=== PATIENT | male | born 1965 | race Caucasian/White ===

== ENCOUNTER 2018-01-26 14:34 | Emergency (ER) | payer OTHER ==
[~2018-01-26] VITALS: Ht 172.7 cm; Wt 88.5 kg
[~2018-01-26 14:34] MED LIST: AMLO5 PO; AMOCLA875 PO; AZIT250 PO; BENZ100A PO; Bactrim Ds Tab1 EACH PO; CARV6.25 PO; CYCL10 PO; DICL75ER PO; HYDACE5 PO; HYDR1TAB94 PO; IBUP800 PO; LISI20 PO; LORA1 PO; NAPR500 PO; Naprosyn500 MG PO; Norco 5-325 Ta1 EACH PO; OXYACE5T PO; RXHYDACE PO; RXOXYACE PO; RXTRAM50 PO; TRAM50 PO; UNK BP MED
[2018-01-26 15:11] LABS: BASOPHILS ABSOLUTE AUTO 0.05 K/mm3 (0.00-0.23); BASOPHILS PERCENT AUTO 1 % (0-2); EOSINOPHILS ABSOLUTE AUTO 0.07 K/mm3 (0.00-0.68); EOSINOPHILS PERCENT AUTO 2 % (0-6); Hematocrit 44.1 % (37.0-53.0); Hemoglobin 15.4 g/dL (13.5-17.5); IMMATURE GRAN ABSOLUTE AUTO 0.01 K/mm3 (0.00-0.10); IMMATURE GRAN PERCENT AUTO 0 % (0-1); LYMPHOCYTES ABSOLUTE AUTO 1.02 K/mm3 (0.84-5.20); LYMPHOCYTES PERCENT AUTO 22 % (21-46); MONOCYTES ABSOLUTE AUTO 0.62 K/mm3 (0.16-1.47); MONOCYTES PERCENT AUTO 13 % (4-13); Mean Corpuscular HGB 33.8 pg (26.0-34.0); Mean Corpuscular HGB Conc 34.9 g/dL (31.5-36.5); Mean Corpuscular Volume 97 fL (80-100); Mean Platelet Volume 9.7 fL (9.1-12.4); NEUTROPHILS ABSOLUTE AUTO 2.93 K/mm3 (1.96-9.15); NEUTROPHILS PERCENT AUTO 62 % (41-73); Platelet Count 187 K/mm3 (150-400); RDW Coefficient Variation 13.3 % (11.7-14.2); RDW Standard Deviation 47.8 fL (35.1-46.3); Red Blood Cell Count 4.56 M/mm3 (4.30-5.90)
[2018-01-26 15:28] LABS: Alanine Aminotransfer (ALT/SGP 73 U/L (12-78); Albumin, Blood 4.2 g/dL (3.4-5.0); Albumin/Globulin Ratio 1.1 (0.8-1.8); Alk Phos 60 U/L (50-136); Anion Gap 9 mmol/L (6-16); Aspartate Aminotrans (AST/SGOT 52 U/L (12-37); Bilirubin, Total 0.4 mg/dL (0.1-1.0); Blood Urea Nitrogen 5 mg/dL (8-24); Bun/Creatinine Ratio 8.5 (12.0-20.0); CO2, Blood 25 mmol/L (21-32); Calcium, Blood 8.8 mg/dL (8.5-10.1); Chloride, Blood 95 mmol/L (98-108); Creatinine, Blood 0.59 mg/dL (0.60-1.20); Globulin, Blood 3.8 g/dL (2.2-4.0); Glomerular Filtration Rate >60 (60-); Glucose, Blood 101 mg/dL (70-99); Potassium, Blood 4.1 mmol/L (3.5-5.5); Sodium, Blood 129 mmol/L (136-145)
[2018-01-26 15:45] LABS: Source, Urine Clean Catch
[2018-01-26 15:51] LABS: Bilirubin, Urine Neg (Neg); Blood, Urine Neg (Neg); Glucose Qualitative, Urine Neg (Neg); Ketones, Urine Neg (Neg); Leukocyte Esterase, Urine Neg (Neg); Nitrite, Urine Neg (Neg); Protein, Urine Neg (Neg); Specific Gravity, Urine 1.015 (1.003-1.022); Urobilinogen, Urine NORM (Normal)
[2018-01-26 16:22] LABS: Color, Urine Pale Yellow (P-Yellow)
[2018-01-26 16:23] LABS: Appearance, Urine Clear (Clear)
[2018-01-26] MEDS ORDERED: Norco 5-325 Ta1 EACH PO (18:21)
[2018-10-26] MEDS ORDERED: Voltaren100 GM TOP (17:56)
[2018-10-26] MEDS ORDERED: CYCL10 PO (17:56)
== END 2018-01-26 18:34 | disposition home or self-care (01) ==
LOC: ER 14:34
PROVIDERS: Emergency Medicine
DX: K42.9 Umbilical hernia without obstruction or gangrene (principal); K40.90 Unilateral inguinal hernia, without obstruction or gangrene, not specified as recurrent; I10 Essential (primary) hypertension; Z88.1 Allergy status to other antibiotic agents
CPT/HCPCS: 74177; 80053; 81003; 83690; 85025; 96360; 99284; J7030; Q9967

== ENCOUNTER 2018-03-09 11:12 | Emergency (ER) | payer OTHER ==
[~2018-03-09] VITALS: Ht 172.7 cm; Wt 88.5 kg
[2018-03-09 13:05] LABS: Calcium, Ionized (POC) 0.74 mmol/L (1.10-1.46); Chloride (POC) 98 mmol/L (98-108); Creatinine (POC) 1.1 mg/dL (0.8-1.3); Glucose (ISTAT POC) 110 mg/dL (70-99); Hemoglobin (POC) 16.3 g/dL (13.5-17.5); Potassium (POC) 4.1 mmol/L (3.5-5.5); Sodium (POC) 138 mmol/L (135-148); Total CO2 (POC) 25 mmol/L (21-32)
[2018-03-09] MEDS ORDERED: Percocet 5-3251 EACH PO (13:19)
== END 2018-03-09 13:27 | disposition home or self-care (01) ==
LOC: ER 11:12
PROVIDERS: Emergency Medicine
DX: K42.9 Umbilical hernia without obstruction or gangrene (principal); K40.90 Unilateral inguinal hernia, without obstruction or gangrene, not specified as recurrent; I10 Essential (primary) hypertension; Z88.1 Allergy status to other antibiotic agents
CPT/HCPCS: 36415; 80047; 81000; 85014; 99283

== ENCOUNTER 2018-04-25 16:24 | Emergency (ER) | payer OTHER ==
[~2018-04-25] VITALS: Ht 172.7 cm; Wt 77.1 kg
[~2018-04-25 16:24] MED LIST changes: +Percocet 5-3251 EACH PO
[2018-04-25 18:21] LABS: BASOPHILS ABSOLUTE AUTO 0.05 K/mm3 (0.00-0.23); BASOPHILS PERCENT AUTO 2 % (0-2); EOSINOPHILS ABSOLUTE AUTO 0.07 K/mm3 (0.00-0.68); EOSINOPHILS PERCENT AUTO 2 % (0-6); Hematocrit 42.5 % (37.0-53.0); Hemoglobin 14.9 g/dL (13.5-17.5); IMMATURE GRAN ABSOLUTE AUTO 0.01 K/mm3 (0.00-0.10); IMMATURE GRAN PERCENT AUTO 0 % (0-1); LYMPHOCYTES PERCENT AUTO 25 % (21-46); MONOCYTES ABSOLUTE AUTO 0.33 K/mm3 (0.16-1.47); MONOCYTES PERCENT AUTO 10 % (4-13); Mean Corpuscular HGB 34.7 pg (26.0-34.0); Mean Corpuscular HGB Conc 35.1 g/dL (31.5-36.5); Mean Corpuscular Volume 99 fL (80-100); Mean Platelet Volume 10.3 fL (9.1-12.4); NEUTROPHILS ABSOLUTE AUTO 1.98 K/mm3 (1.96-9.15); NEUTROPHILS PERCENT AUTO 61 % (41-73); Platelet Count 153 K/mm3 (150-400); RDW Coefficient Variation 13.2 % (11.7-14.2); RDW Standard Deviation 48.2 fL (35.1-46.3); White Blood Cell Count 3.24 K/mm3 (4.00-11.30)
[2018-04-25 18:34] LABS: International Normalized Ratio 1.03; Prothrombin Time Results 10.7 Sec (9.7-11.5)
[2018-04-25] MEDS ORDERED: IBUP800 PO (18:42)
[2018-04-25] MEDS ORDERED: Acetaminophen-1 EAC1 PO (18:42)
[2018-04-25] MEDS ORDERED: Robaxin-750750 MG PO (18:42)
[2018-04-25 18:47] LABS: Alanine Aminotransfer (ALT/SGP 111 U/L (12-78); Albumin/Globulin Ratio 1.2 (0.8-1.8); Alk Phos 92 U/L (50-136); Anion Gap 10 mmol/L (6-16); Aspartate Aminotrans (AST/SGOT 114 U/L (12-37); Bilirubin, Total 0.5 mg/dL (0.1-1.0); Blood Urea Nitrogen 4 mg/dL (8-24); Bun/Creatinine Ratio 7.2 (12.0-20.0); CO2, Blood 27 mmol/L (21-32); Calcium, Blood 8.7 mg/dL (8.5-10.1); Chloride, Blood 101 mmol/L (98-108); Creatinine, Blood 0.55 mg/dL (0.60-1.20); Globulin, Blood 3.4 g/dL (2.2-4.0); Glomerular Filtration Rate >60 (60-); Glucose, Blood 101 mg/dL (70-99); Sodium, Blood 138 mmol/L (136-145); Total Protein, Blood 7.4 g/dL (6.4-8.2)
[2018-04-25 19:02] LABS: Ethanol (Alcohol), Blood, Med 301 mg/dL
== END 2018-04-25 18:51 | disposition home or self-care (01) ==
LOC: ER 16:24
PROVIDERS: Emergency Medicine
DX: M79.1 Myalgia (principal); M54.2 Cervicalgia; M54.5 Low back pain; M54.6 Pain in thoracic spine; I10 Essential (primary) hypertension; Z88.1 Allergy status to other antibiotic agents; V60.5XXA Driver of heavy transport vehicle injured in collision with pedestrian or animal in traffic accident, initial encounter
CPT/HCPCS: 36415; 70450; 71260; 72125; 74177; 80053; 83690; 85025; 85610; 85730; 86850; 86900; 86901; 96374; 99284; G0480; J3010; L0160; Q9967

== ENCOUNTER 2018-05-13 14:05 | Emergency (ER) | payer OTHER ==
[~2018-05-13] VITALS: Ht 172.7 cm; Wt 841.4 kg
[~2018-05-13 14:05] MED LIST changes: +Acetaminophen-1 EAC1 PO; +Robaxin-750750 MG PO
[2018-05-13] MEDS ORDERED: BLOOD PRESSURE (14:45)
== END 2018-05-13 15:16 | disposition home or self-care (01) ==
LOC: ER 14:05
DX: K46.9 Unspecified abdominal hernia without obstruction or gangrene (principal); Z88.1 Allergy status to other antibiotic agents; Z79.899 Other long term (current) drug therapy; I10 Essential (primary) hypertension
CPT/HCPCS: 99282

== ENCOUNTER 2019-05-28 13:25 | Emergency (ER) | payer OTHER ==
[~2019-05-28] VITALS: Ht 172.7 cm; Wt 83.9 kg
[~2019-05-28 13:25] MED LIST changes: +BLOOD PRESSURE; +Voltaren100 GM TOP
[2019-05-28 14:10] LABS: BASOPHILS ABSOLUTE AUTO 0.06 K/mm3 (0.00-0.23); BASOPHILS PERCENT AUTO 1 % (0-2); EOSINOPHILS ABSOLUTE AUTO 0.09 K/mm3 (0.00-0.68); EOSINOPHILS PERCENT AUTO 2 % (0-6); Hematocrit 44.7 % (37.0-53.0); Hemoglobin 15.2 g/dL (13.5-17.5); IMMATURE GRAN ABSOLUTE AUTO 0.02 K/mm3 (0.00-0.10); IMMATURE GRAN PERCENT AUTO 0 % (0-1); LYMPHOCYTES ABSOLUTE AUTO 1.21 K/mm3 (0.84-5.20); LYMPHOCYTES PERCENT AUTO 21 % (21-46); MONOCYTES ABSOLUTE AUTO 0.45 K/mm3 (0.16-1.47); MONOCYTES PERCENT AUTO 8 % (4-13); Mean Corpuscular HGB 34.9 pg (26.0-34.0); Mean Corpuscular Volume 103 fL (80-100); Mean Platelet Volume 9.3 fL (9.1-12.4); NEUTROPHILS ABSOLUTE AUTO 4.01 K/mm3 (1.96-9.15); NEUTROPHILS PERCENT AUTO 69 % (41-73); Platelet Count 251 K/mm3 (150-400); RDW Coefficient Variation 13.5 % (11.7-14.2); Red Blood Cell Count 4.36 M/mm3 (4.30-5.90); White Blood Cell Count 5.84 K/mm3 (4.00-11.30)
[2019-05-28 14:39] LABS: Alanine Aminotransfer (ALT/SGP 27 U/L (12-78); Albumin, Blood 4.2 g/dL (3.4-5.0); Albumin/Globulin Ratio 1.2 (0.8-1.8); Alk Phos 61 U/L (50-136); Anion Gap 8 mmol/L (6-16); Aspartate Aminotrans (AST/SGOT 29 U/L (12-37); Bilirubin, Total 0.2 mg/dL (0.1-1.0); Blood Urea Nitrogen 10 mg/dL (8-24); Bun/Creatinine Ratio 13.2 (12.0-20.0); CO2, Blood 27 mmol/L (21-32); Calcium, Blood 8.5 mg/dL (8.5-10.1); Chloride, Blood 101 mmol/L (98-108); Creatinine, Blood 0.76 mg/dL (0.60-1.20); Globulin, Blood 3.5 g/dL (2.2-4.0); Glomerular Filtration Rate >60 (60-); Glucose, Blood 141 mg/dL (70-99); Potassium, Blood 4.4 mmol/L (3.5-5.5); Sodium, Blood 136 mmol/L (136-145); Total Protein, Blood 7.7 g/dL (6.4-8.2)
== END 2019-05-28 15:40 | disposition home or self-care (01) ==
LOC: ER 13:25
PROVIDERS: Physician Assistant
DX: M54.2 Cervicalgia (principal); G89.29 Other chronic pain; R51 Headache; I10 Essential (primary) hypertension; Z88.1 Allergy status to other antibiotic agents
CPT/HCPCS: 36415; 70450; 80053; 85025; 93005; 93010; 99284-25

== ENCOUNTER 2019-12-18 01:32 | Inpatient (IN) | payer OTHER ==
[~2019-12-18] VITALS: Ht 172.7 cm; Wt 68.0 kg
[2019-12-18 02:18] LABS: Source, Urine Clean Catch
[2019-12-18 02:24] LABS: BASOPHILS ABSOLUTE AUTO 0.02 K/mm3 (0.00-0.23); BASOPHILS PERCENT AUTO 0 % (0-2); EOSINOPHILS PERCENT AUTO 0 % (0-6); Hematocrit 42.1 % (37.0-53.0); Hemoglobin 15.2 g/dL (13.5-17.5); IMMATURE GRAN ABSOLUTE AUTO 0.04 K/mm3 (0.00-0.10); IMMATURE GRAN PERCENT AUTO 0 % (0-1); LYMPHOCYTES ABSOLUTE AUTO 0.37 K/mm3 (0.84-5.20); LYMPHOCYTES PERCENT AUTO 3 % (21-46); MONOCYTES ABSOLUTE AUTO 1.07 K/mm3 (0.16-1.47); MONOCYTES PERCENT AUTO 9 % (4-13); Mean Corpuscular HGB 34.9 pg (26.0-34.0); Mean Corpuscular HGB Conc 36.1 g/dL (31.5-36.5); Mean Corpuscular Volume 97 fL (80-100); Mean Platelet Volume 11.1 fL (9.1-12.4); NEUTROPHILS ABSOLUTE AUTO 10.77 K/mm3 (1.96-9.15); NEUTROPHILS PERCENT AUTO 88 % (41-73); Platelet Count 126 K/mm3 (150-400); RDW Standard Deviation 43.2 fL (35.1-46.3); Red Blood Cell Count 4.36 M/mm3 (4.30-5.90); White Blood Cell Count 12.27 K/mm3 (4.00-11.30)
[2019-12-18 02:24] LABS: Bilirubin, Urine Neg (Neg); Blood, Urine 5+ (Neg); Glucose Qualitative, Urine Neg (Neg); Ketones, Urine 1+ (Neg); Leukocyte Esterase, Urine 1+ (Neg); Nitrite, Urine Neg (Neg); Protein, Urine 3+ (Neg); Specific Gravity, Urine 1.025 (1.003-1.022); Urobilinogen, Urine NORM (Normal)
[2019-12-18 02:29] LABS: Appearance, Urine Hazy (Clear); Color, Urine Yellow (P-Yellow)
[2019-12-18 02:30] LABS: Amorphous Light (0-Heavy); Bacteria Many /hpf; Hyaline Casts TNTC /lpf (0-2); Red Blood Cells, Urine 0-2 /hpf (0-2); Squamous Epithelial Cells Rare /hpf (Few)
[2019-12-18 02:34] LABS: U Amphetamine Screen Not Detected; U Barbituate Screen Not Detected; U Benzodiazapine Screen DETECTED; U Buprenorphine Screen Not Detected; U Cannabinoids Screen DETECTED; U Cocaine Screen Not Detected; U Methadone Screen Not Detected; U Methamphetamine Screen Not Detected; U Opiates Screen Not Detected; U Phencyclidine Screen Not Detected
[2019-12-18 02:35] LABS: U Oxycodone Screen Not Detected; U Propoxyphene Screen Not Detected
[2019-12-18 02:45] LABS: Acetaminophen, Random 2.6 ug/mL (10.0-30.0); Alanine Aminotransfer (ALT/SGP 195 U/L (12-78); Albumin, Blood 4.7 g/dL (3.4-5.0); Albumin/Globulin Ratio 1.3 (0.8-1.8); Alk Phos 57 U/L (50-136); Anion Gap 27 mmol/L (6-16); Aspartate Aminotrans (AST/SGOT 528 U/L (12-37); Bilirubin, Total 1.6 mg/dL (0.1-1.0); Blood Urea Nitrogen 71 mg/dL (8-24); Bun/Creatinine Ratio 27.3 (12.0-20.0); CO2, Blood 15 mmol/L (21-32); Chloride, Blood 79 mmol/L (98-108); Creatine Kinase MB 98.6 ng/mL (0.0-3.6); Ethanol (Alcohol), Blood, Med 15 mg/dL; Globulin, Blood 3.7 g/dL (2.2-4.0); Glomerular Filtration Rate 28 (60-); Glucose, Blood 99 mg/dL (70-99); Magnesium, Blood 2.4 mg/dL (1.6-2.4); Potassium, Blood 3.4 mmol/L (3.5-5.5); Salicylate <1.7 mg/dL (2.8-20.0); Sodium, Blood 121 mmol/L (136-145); Total Protein, Blood 8.4 g/dL (6.4-8.2)
[2019-12-18 03:11] LABS: CPK Creatine Kinase 11497 U/L (39-308); Creatine Kinase MB Index 0.9 (0.0-4.0)
[2019-12-18 03:31] LABS: International Normalized Ratio 1.05; Prothrombin Time Results 11.2 Sec (9.7-11.5)
[2019-12-18 03:53] LABS: Troponin I 0.158 ng/mL (0.000-0.040)
--- NOTE | 2019-12-18 06:30 | NUR ---
PCU ADMIT / TRANSFER TO ICU PT BROUGHT TO PCU RM 05 FROM ER BY PHIL @ 0500. PT ABLE TO STAND & VERY UNSTEADILY AMBULATE FROM [facility] TO PCU BED W/ 2 PERSON MOD ASSIST. PT A&O, ANSWERING Q's APPROPRIATELY, BUT HAVING VISUAL HALLUCINATIONS. PT VERY RESTLESS & FIDGETY, UNABLE TO HOLD STILL W/ NOTABLE TREMORS TO BILAT ARMS AND LEGS. PT INITIAL CIWA 35, REDUCED TO 25 POST 2MG IV ATIVAN PER EMAR. CALL TO MD DESHPANDE W/ ORDERS FOR JENNIFER VEST & BILAT SWR, & TRANSFER TO ICU & PRECEDEX GTT. PT TRANSFERED TO ICU RM 09 @ APPROX 0600 W/ BEDSIDE REPORT GIVEN.
--- NOTE | 2019-12-18 06:30 | NUR ---
TRANSFER/ASSUMPTION OF CARE: PATIENT TRANSFERRED FROM PCU TO ICU RM 9, ARRIVED AT 0605HR. PATIENT ALERT BUT VERY CONFUSED AND RESTLESS. ORIENTED TO SELF, BUT CONFUSED TO DATE/TIME, PLACE, AND REASON FOR ADMISSION. PATIENT VERY TREMULOUS AND RESTLESS IN BED. CONTINUALLY PULLING AND BLANKETS, TUBES, CORDS. ONLY ABLE TO VERBALLY RE-DIRECT PATIENT FOR APPROX 10-15 SECONDS BEFORE BEHAVIOR CONTINUED. PATIENT SPEECH IS CLEAR BUT NONSENSICAL. JENNIFER VEST IN PLACE UPON ARRIVAL, BILATERAL SOFT WRIST RESTRAINTS ALSO APPLIED. PRECEDEX GTT STARTED AT 0.7MCG/KG/HR. CALL PLACED TO DR. DESHPANDE, RECEIVED ORDERS FOR NS AT 100ML/HR X2L, PO TYLENOL PRN FEVER. PERIPHERAL IV'S X3 PATENT AND INTACT, INFUSING WITHOUT DIFFICULTY. VOIDED USING URINAL IN BED WITHOUT DIFFICULTY. BEDSIDE REPORT GIVEN TO DAY SHIFT RN.
[2019-12-18] MEDS ORDERED: BUPR100 PO (11:52)
[2019-12-18] MEDS ORDERED: CLON1 PO (11:52)
[2019-12-18] MEDS ORDERED: LISI20 PO (11:53)
--- NOTE | 2019-12-18 11:53 | NUR ---
REASSESSMENT: PT WAS QUITE RESTLESS THIS MORNING, UNABLE TO HOLD STILL, BUT HE QUICKLY CALMED DOWN AND FEEL ASLEEP THE PRECEDEX CONTINUED TO INFUSE. PRECEDEX HAS BEEN TITRATED DOWN ABLE, SEE FLOWSHEET. PT IS SLEEPING IN BED CURRENTLY. IF WOKEN UP HE BECOMES RESTLESS AGAIN, UNABLE TO HOLD STILL. HE ATTEMPTS TO FOLLOW DIRECTIONS BUT IS UNABLE TO HOLD HIS ATTENTION. HE IS ORIENTED TO PERSON AND KNOWS HE IS IN A HOSPITAL. LUNGS ARE CLEAR, ON RA. SR, BP STABLE, SEE VITALS. AFEBRILE NOW. SKIN CONTINUES TO BE HOT AND DIAPHORETIC. PT HAD A BM AND VOIDED THIS MORNING, ATTENDS ON. WHEN RESTRAINTS ARE RELEASED FOR REPOSITIONING PT GRABS AT ANYTHING HE CAN GET A HOLD OF INCLUDING IV LINES AND MONITOR LINES.
[2019-12-18 15:19] LABS: Alanine Aminotransfer (ALT/SGP 135 U/L (12-78); Albumin, Blood 3.4 g/dL (3.4-5.0); Albumin/Globulin Ratio 1.2 (0.8-1.8); Alk Phos 37 U/L (50-136); Anion Gap 12 mmol/L (6-16); Aspartate Aminotrans (AST/SGOT 310 U/L (12-37); Bilirubin, Total 1.2 mg/dL (0.1-1.0); Blood Urea Nitrogen 37 mg/dL (8-24); Bun/Creatinine Ratio 42.8 (12.0-20.0); CO2, Blood 23 mmol/L (21-32); CPK Creatine Kinase 6929 U/L (39-308); Calcium, Blood 8.2 mg/dL (8.5-10.1); Chloride, Blood 97 mmol/L (98-108); Creatinine, Blood 0.87 mg/dL (0.60-1.20); Globulin, Blood 2.8 g/dL (2.2-4.0); Glomerular Filtration Rate >60 (60-); Glucose, Blood 109 mg/dL (70-99); Potassium, Blood 3.4 mmol/L (3.5-5.5); Sodium, Blood 132 mmol/L (136-145); Total Protein, Blood 6.2 g/dL (6.4-8.2)
--- NOTE | 2019-12-18 17:04 | NUR ---
SHIFT SUMMARY: PT CONTINUED TO REST THROUGHOUT THE DAY. THIS AFTERNOON PT WOKE UP AND WAS MUCH MORE ORIENTED. HE IS STILL ONLY ORIENTED TO PERSON AND SURROUNDINGS, BUT HE IS ABLE TO FOLLOW DIRECTIONS AND HOLD A CONVERSATION THAT MAKES SENSE. HE HELPED TURN HIMSELF AND WAS MORE IN CONTROL OF HIS BODY MOVEMENTS. WRIST RESTRAINTS REMOVED AFTER DISCUSSING WITH PT WHAT WILL CAUSE HIM TO GET THEM PUT BACK ON AND PT VERBALIZED UNDERSTANDING. PT HAS BEEN LEAVING HIS IV AND MONITOR LINES ALONE. VEST REMAINS ON AND BED ALARM IS ON. PT REMAINS SR, BP STABLE, RA, CL LUNGS. PT WAS CONTINENT OF URINE AND STOOL THIS AFTERNOON. PRECEDEX REMAINS ON. CONTINUING TO MONITOR.
--- NOTE | 2019-12-18 18:38 | NUR ---
[facility] MONIT[facility] IS SHOWING SOME ST ELEVATION IN LEADS II AND III. PT'S TROPONINS WAS SLIGHTLY ELEVATED [place] HE CAME IN. HE DENIES ANY CHEST PAIN. DR. KNIGHT NOTIFIED AND GAVE OK TO DO EKG AND ALSO GAVE ORDER FOR REPEAT TROPONIN. EKG DIFFICULT D'T PT'S TREMORS, BUT READ NORMAL SR. TROPONIN DECREASED FROM EARLIER LEVEL. CONTINUE TO MONITOR.
--- NOTE | 2019-12-18 19:41 | NUR ---
[place] of Care: Care assumed at 1900hr. Patient sleeping, but easily roused to verbal stimuli. Slightly drowsy when awake, but now able to have sensible conversation, compared to nonsensical speech las NOC shift. Oriented to self, time, place, but confused to reason for admission. No restraints in place, bed-alarm on r/t fall risk, calm and cooperative with staff. VSS, O2-97% on RA. Denies pain, discomfort, SOB, or dyspnea. Precedex gtt at 0.4mcg/kg/hr at shift change, decreased to 0.2mcg/kg/hr as patient's HR briefly decreased from 60's to low 50's, while sleeping, will continue to monitor. CIWA of 8 at this time. Peripheral IV's patent and intact. Plan to contact Dr. Pena r/t K+ of 3.4 on this afternoon's lab results. Very occasional PVC's noted. Will continue to monitor for pain, comfort, safety.
[2019-12-19 03:38] LABS: Hematocrit 32.6 % (37.0-53.0); Hemoglobin 11.7 g/dL (13.5-17.5); Mean Corpuscular HGB 35.6 pg (26.0-34.0); Mean Corpuscular HGB Conc 35.9 g/dL (31.5-36.5); Mean Corpuscular Volume 99 fL (80-100); Mean Platelet Volume 10.6 fL (9.1-12.4); Platelet Count 89 K/mm3 (150-400); RDW Coefficient Variation 12.4 % (11.7-14.2); RDW Standard Deviation 45.6 fL (35.1-46.3); Red Blood Cell Count 3.29 M/mm3 (4.30-5.90); White Blood Cell Count 7.19 K/mm3 (4.00-11.30)
[2019-12-19 03:56] LABS: Alanine Aminotransfer (ALT/SGP 120 U/L (12-78); Albumin, Blood 3.1 g/dL (3.4-5.0); Albumin/Globulin Ratio 1.2 (0.8-1.8); Alk Phos 40 U/L (50-136); Anion Gap 10 mmol/L (6-16); Aspartate Aminotrans (AST/SGOT 216 U/L (12-37); Bilirubin, Total 0.7 mg/dL (0.1-1.0); Blood Urea Nitrogen 23 mg/dL (8-24); Bun/Creatinine Ratio 35.9 (12.0-20.0); CO2, Blood 26 mmol/L (21-32); Calcium, Blood 7.7 mg/dL (8.5-10.1); Chloride, Blood 100 mmol/L (98-108); Creatinine, Blood 0.64 mg/dL (0.60-1.20); Globulin, Blood 2.6 g/dL (2.2-4.0); Glomerular Filtration Rate >60 (60-); Glucose, Blood 83 mg/dL (70-99); Potassium, Blood 3.2 mmol/L (3.5-5.5); Sodium, Blood 136 mmol/L (136-145); Total Protein, Blood 5.7 g/dL (6.4-8.2)
--- NOTE | 2019-12-19 05:47 | NUR ---
Shift Summary: Patient awake for most of shift, but has been sleeping off/on for last several hours. Patient continues to be alert when awake, and oriented to time, place, date, self, but does not believe he has been admitted r/t ETOH withdrawal. Continues to be calm and cooperative with staff, following commands. No attempts to get out of bed, or pull at lines, tubes, cords. Precedex gtt at 0.2mcg/kg/hr throughout shift, with x2 doses of prn Librium given per increase in tremors of c/o anxiety. Good effect noted with administration of Librium. Received order per Dr. Pena early in shift for 40meq PO KCl r/t K= of 3.4 on day shift. Morning labs then showed K+ of 3.2, received order per Dr. Lyman for 40meq IV KCl, first 20meq bag infusing at this time. Peripheral IV's remain patent and intact. Voiding using urinal in bed without difficulty. Tolerated PO fluids and snacks this shift without difficulty. Call light in reach, makes needs known. Will continue to monitor until report to day shift RN.
--- NOTE | 2019-12-19 08:00 | NUR ---
PT AWAKE IN BED WATCHING TV. ORIENTED X3. WHEN ASKED QUESTIONS PT'S SPEECH TENDS TO GO OFF ON A TANGENT; DIFFICULT TO ELICIT DIRECT ANSWERS FROM PT. PT HAS MODERATE TREMOR, SLIGHT ANXIETY W RESTLESSNESS. CIWA 6; LIBRIUM GIVEN. PRECEDEX HAS BEEN OFF SINCE 629. VSS
--- NOTE | 2019-12-19 12:44 | NUR ---
DR LOONEY IN TO SEE PT; PT CHANGED TO PCU STATUS. CIWA RANGE FROM 6-10. PT HAD REQUESTED SOMETHING FOR W/D SYMPTOMS AT 1115; LIBRIUM AND ATIVAN GIVEN FOR CIWA 10 W GOOD EFFECT
--- NOTE | 2019-12-19 17:05 | NUR ---
ECHOCARDIOGRAM COMPLETED
--- NOTE | 2019-12-19 20:27 | NUR ---
PT CIWA RANGED FROM 6-10 T/O SHIFT; LIBRIUM AND ATIVAN GIVEN W GOOD EFFECT. PT SBA TO TOILET; UNSTEADY GAIT AND IMPULSIVE, BED ALARM SET. PT SLEPT ON AND OFF T/O DAY AND WATCHED TV. PT CALM AND COOPERATIVE, OCCASIONALLY RESTLESS IN BED. BP AND HEART RATE STABLE; T-MAX 100.O; PT FOUND BUNDLED UP MANY TIMES IN BED. PT VERBALIZES THAT HE WOULD LIKE TO BE DC'D HOME IN AM; HE IS CONCERNED ABOUT MISSING SCHOOL. PT REMINDED THAT THERE IS NO SCHOOL TOMORROW IT IS A HOLIDAY. PT VERBALIZES BEING VERY ANXIOUS ABOUT SCHOOL SITUATION; PT COUNSELED. REPORT GIVEN TO LUIS MEDEL.
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
[2019-12-20 03:52] LABS: BASOPHILS ABSOLUTE AUTO 0.01 K/mm3 (0.00-0.23); BASOPHILS PERCENT AUTO 0 % (0-2); EOSINOPHILS ABSOLUTE AUTO 0.08 K/mm3 (0.00-0.68); EOSINOPHILS PERCENT AUTO 1 % (0-6); Hematocrit 34.2 % (37.0-53.0); IMMATURE GRAN ABSOLUTE AUTO 0.03 K/mm3 (0.00-0.10); IMMATURE GRAN PERCENT AUTO 1 % (0-1); LYMPHOCYTES PERCENT AUTO 17 % (21-46); MONOCYTES ABSOLUTE AUTO 0.55 K/mm3 (0.16-1.47); MONOCYTES PERCENT AUTO 9 % (4-13); Mean Corpuscular HGB 35.2 pg (26.0-34.0); Mean Corpuscular HGB Conc 35.1 g/dL (31.5-36.5); Mean Corpuscular Volume 100 fL (80-100); Mean Platelet Volume 10.9 fL (9.1-12.4); NEUTROPHILS ABSOLUTE AUTO 4.22 K/mm3 (1.96-9.15); NEUTROPHILS PERCENT AUTO 72 % (41-73); Platelet Count 103 K/mm3 (150-400); RDW Coefficient Variation 12.5 % (11.7-14.2); RDW Standard Deviation 46.7 fL (35.1-46.3); Red Blood Cell Count 3.41 M/mm3 (4.30-5.90); White Blood Cell Count 5.89 K/mm3 (4.00-11.30)
[2019-12-20 04:14] LABS: Alanine Aminotransfer (ALT/SGP 117 U/L (12-78); Alk Phos 47 U/L (50-136); Anion Gap 9 mmol/L (6-16); Aspartate Aminotrans (AST/SGOT 182 U/L (12-37); Bilirubin, Total 0.9 mg/dL (0.1-1.0); Blood Urea Nitrogen 9 mg/dL (8-24); Bun/Creatinine Ratio 18.5 (12.0-20.0); CO2, Blood 27 mmol/L (21-32); Calcium, Blood 7.7 mg/dL (8.5-10.1); Chloride, Blood 99 mmol/L (98-108); Creatinine, Blood 0.49 mg/dL (0.60-1.20); Globulin, Blood 2.9 g/dL (2.2-4.0); Glomerular Filtration Rate >60 (60-); Glucose, Blood 90 mg/dL (70-99); Sodium, Blood 135 mmol/L (136-145); Total Protein, Blood 5.9 g/dL (6.4-8.2)
[2019-12-20 04:36] LABS: CPK Creatine Kinase 2876 U/L (39-308)
--- NOTE | 2019-12-20 05:42 | NUR ---
SHIFT SUMMARY PT REMAINS STABLE T/O SHIFT, SOME CONFUSION AT BEGINNING OF SHIFT NOW RESOLVED. ETOH WITHDRAWALS SEEMED TO HAVE STABILIZED, REQUIRING LESS PRN MEDICATIONS. PT RESTED THROUGH MUCH OF SHIFT, WOKE UP FOR MORNING LABS, PT BECAME ANXIOUS, STIMULI REDUCED, NO IMPROVEMENT WITH REST, CIWA FROM 3 TO 7, PRN LIBRIUM PROVIDED. TMAX THIS SHIFT 100.9, TYLENOL PROVIDED WITH GOOD EFFECT. MONITOR SHOWS SINUS RHYTHM WITH STABLE BP. PT TOLERATING PO INTAKE, USING URINAL AT BEDSIDE, USES CALL LIGHT APPROPRIATELY, PLEASANT AND COOPERATIVE T/O SHIFT.
--- NOTE | 2019-12-20 07:30 | NUR ---
BEGINNING OF SHIFT Assumed care at 0700. Bedside report received from Syeda MEDEL. Pt A&O x 4. Anxious. Restless. Tremulous. States he is "tired of being in this bed". Initially refuses IV potassium, but is agreeable to recieve it if he can take a shower and sit in a chair. Pt assisted to shower. Steady on feet. Pt showering independently at this time.
--- NOTE | 2019-12-20 09:00 | NUR ---
DR GOMEZ IN TO SEE PT Pt states intent to go home today. This RN discussed AM CIWA and medications provided and stated that pt may not be safe to go home today. Provider states she will reassess pt after lunch.
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
[2019-12-20 12:12] LABS: Magnesium, Blood 1.8 mg/dL (1.6-2.4); Potassium, Blood 3.2 mmol/L (3.5-5.5)
--- NOTE | 2019-12-20 12:45 | NUR ---
CALL PLACED TO DR GOMEZ Discussed potassium redraw. Discussed concerns from pt's mother, who pt shares living space with. Plan to keep pt. Pt to continue as ICU status. Telephone orders given for psych consultation. Discussed 2 MD hold, provider stated this would be inappropriate as pt does not act to be a threat to self or others.
--- NOTE | 2019-12-20 16:12 | NUR ---
[facility] CONSULT Provider states he will consult on patient tomorrow 12/20/19.
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
--- NOTE | 2019-12-20 17:30 | NUR ---
DR GOMEZ IN TO SEE PT Pt sitting on edge of bed eating dinner. Verbalizes understanding that he will be here over night.
--- NOTE | 2019-12-20 17:47 | NUR ---
SUMMARY Pt initially PCU status. Changed to ICU status as pt had elevated CIWAs that were not responding to administration of ativan. Precedex in room, on standby. Pt has not yet required precedex today. At this time, pt is sitting on edge of bed, eating dinner. Pt states he would like to go for a walk. Pt remains on room air. Sinus rhythm per monitor. Bed in lowest position. Call light in reach. Pt denies need at this time.
--- NOTE | 2019-12-20 19:15 | NUR ---
PT ALERT, STANDING IN ROOM, HELP PT BACK TO BED, VITALS WNL ON ROOM AIR. DENIES PAIN. WILL REVEIW CARE PLAN
[2019-12-21 03:43] LABS: BASOPHILS ABSOLUTE AUTO 0.02 K/mm3 (0.00-0.23); BASOPHILS PERCENT AUTO 0 % (0-2); EOSINOPHILS ABSOLUTE AUTO 0.14 K/mm3 (0.00-0.68); EOSINOPHILS PERCENT AUTO 2 % (0-6); IMMATURE GRAN ABSOLUTE AUTO 0.04 K/mm3 (0.00-0.10); IMMATURE GRAN PERCENT AUTO 1 % (0-1); LYMPHOCYTES ABSOLUTE AUTO 1.14 K/mm3 (0.84-5.20); LYMPHOCYTES PERCENT AUTO 19 % (21-46); MONOCYTES ABSOLUTE AUTO 0.65 K/mm3 (0.16-1.47); MONOCYTES PERCENT AUTO 11 % (4-13); Mean Corpuscular HGB 35.6 pg (26.0-34.0); Mean Corpuscular HGB Conc 35.1 g/dL (31.5-36.5); Mean Corpuscular Volume 101 fL (80-100); Mean Platelet Volume 10.7 fL (9.1-12.4); NEUTROPHILS ABSOLUTE AUTO 3.93 K/mm3 (1.96-9.15); NEUTROPHILS PERCENT AUTO 66 % (41-73); Platelet Count 151 K/mm3 (150-400); RDW Coefficient Variation 12.6 % (11.7-14.2); RDW Standard Deviation 46.9 fL (35.1-46.3); Red Blood Cell Count 3.65 M/mm3 (4.30-5.90); White Blood Cell Count 5.92 K/mm3 (4.00-11.30)
[2019-12-21 04:05] LABS: Alanine Aminotransfer (ALT/SGP 115 U/L (12-78); Albumin, Blood 3.3 g/dL (3.4-5.0); Albumin/Globulin Ratio 1.1 (0.8-1.8); Alk Phos 47 U/L (50-136); Anion Gap 4 mmol/L (6-16); Aspartate Aminotrans (AST/SGOT 144 U/L (12-37); Bilirubin, Total 0.8 mg/dL (0.1-1.0); Blood Urea Nitrogen 10 mg/dL (8-24); Bun/Creatinine Ratio 17.3 (12.0-20.0); CO2, Blood 32 mmol/L (21-32); Calcium, Blood 8.6 mg/dL (8.5-10.1); Chloride, Blood 103 mmol/L (98-108); Creatinine, Blood 0.58 mg/dL (0.60-1.20); Glomerular Filtration Rate >60 (60-); Glucose, Blood 116 mg/dL (70-99); Potassium, Blood 3.4 mmol/L (3.5-5.5); Sodium, Blood 139 mmol/L (136-145); Total Protein, Blood 6.3 g/dL (6.4-8.2)
--- NOTE | 2019-12-21 08:00 | NUR ---
INITIAL ASSESMENT PT ALERT AND ORIENT TIMES THREE AND COOPERATIVE AT THIS TIME WITH CIWA ASSESMENTS PER MD ORDERS AND LITHIUM AND ATIVAN GIVEN PER ORDER. DENIES PAIN, VSS RA WITH SATS WNL, TOLERATING PO INTAKE WITH GOOD APPETITE AND LARGE BROWN FORMED BM. USING URINAL WITH ADEQUATE DARK YELLOW CLEAR UO. WILL CONT TO MONITOR CIWA AND D/C TO MED FLOOR PER MD ORDER
--- NOTE | 2019-12-21 08:02 | NUR ---
PT ALERT, ABLE TO REST COMFORTABLE AFTER, GETTING A TOTAL OF 12MG OF ATIVAN AND 175MG OF LIBRIUM BEFORE MIDNIGHT. PT SLIGHTLY IMPLUSIVE, GETS OUT OF BED WITHOUT NOTIFING NURSE. VITALS WNL, NO ACUTE EVENTS, WILL CONTINUE TO MONITOR.
== END 2019-12-21 14:49 | disposition home or self-care (01) | DRG 896 ==
LOC: ER 01:32 → PCU 04:32 → ICUW 04:32 → PCU 04:54 → ICUW 06:05
PROVIDERS: Emergency Medicine; Internal Medicine; ADMIT Internal Medicine
DX: F10.239 Alcohol dependence with withdrawal, unspecified (principal); G93.41 Metabolic encephalopathy; M62.82 Rhabdomyolysis; E87.1 Hypo-osmolality and hyponatremia; N17.9 Acute kidney failure, unspecified; E88.89 Other specified metabolic disorders; I10 Essential (primary) hypertension; E87.6 Hypokalemia; K70.10 Alcoholic hepatitis without ascites; D69.6 Thrombocytopenia, unspecified; F12.90 Cannabis use, unspecified, uncomplicated; Y90.0 Blood alcohol level of less than 20 mg/100 ml
CPT/HCPCS: 36415; 70450; 71045; 76770; 80053; 81001; 82140; 82550; 82553; 83605; 83690; 83735; 84132; 84145; 84484; 85025; 85027; 85610; 87040; 87086; 93005; 93010; 93306; 96361; 96374; 96376; 99285-25; A9270; G0480; J0696; J1650; J2060; J3411; J3480; J7030; J7050

== ENCOUNTER → 2021-06-02 | Outpatient (CLI) | payer OTHER ==
[~2021-06-02] MED LIST changes: +BUPR100 PO; +CLON1 PO
== END | disposition home or self-care (01) ==
LOC: LAB SHORT 16:01 → LAB 16:01
DX: B35.6 Tinea cruris (principal)
CPT/HCPCS: 87070; 87205

== ENCOUNTER → 2021-08-08 | Outpatient (CLI) | payer OTHER ==
[2021-08-08 17:53] LABS: Anion Gap 10 mmol/L (6-16); Blood Urea Nitrogen 5 mg/dL (8-24); Bun/Creatinine Ratio 6.7 (12.0-20.0); CO2, Blood 25 mmol/L (21-32); Calcium, Blood 8.8 mg/dL (8.5-10.1); Chloride, Blood 99 mmol/L (98-108); Creatinine, Blood 0.75 mg/dL (0.60-1.20); Glomerular Filtration Rate >60 (60-); Glucose, Blood 90 mg/dL (70-99); Potassium, Blood 4.3 mmol/L (3.5-5.5); Sodium, Blood 134 mmol/L (136-145)
== END | disposition home or self-care (01) ==
LOC: LAB SHORT 17:42 → LAB 17:42
PROVIDERS: Chiropractor
DX: N49.2 Inflammatory disorders of scrotum (principal)
CPT/HCPCS: 80048

== ENCOUNTER 2022-04-03 17:55 | Emergency (ER) | payer OTHER ==
[~2022-04-03] VITALS: Ht 170.2 cm; Wt 99.8 kg
== END 2022-04-03 20:42 | disposition home or self-care (01) ==
LOC: ER 17:55
DX: S06.9X0A Unspecified intracranial injury without loss of consciousness, initial encounter (principal); I10 Essential (primary) hypertension; W20.8XXA Other cause of strike by thrown, projected or falling object, initial encounter; Y92.9 Unspecified place or not applicable; Z88.1 Allergy status to other antibiotic agents; Z79.899 Other long term (current) drug therapy
CPT/HCPCS: 70450; 72125; 99283-25